=== PATIENT | female | born 1955 | race Caucasian/White ===

== ENCOUNTER 2017-08-28 17:03 | Emergency (ER) | payer OTHER, BC ==
[~2017-08-28] VITALS: Ht 157.5 cm; Wt 74.7 kg
[~2017-08-28 17:03] MED LIST: ALDACTONE100 MG PO; ALDACTONE50 MG PO; ALER-CAP25 M1 PO; ALIGN4 MG PO; AMOXICILLIN500 MG PO; ARTIFICIAL TEAR15 M1 BOTH EYES; ARTIFICIAL TEAR1510 BOTH EYES; ASPIR-LOW81 MG PO; ATIVAN1 MG PO; Aldactone PO; Antivert PO; BABY ASPIRIN81 M1 PO; BENTYL20 MG PO; CALCIUM CITR PO; CALCIUM CITRAT1 EAC9 PO; CALCIUM500 M3 NG; CALTRATE 600 +1 EAC1 PO; CARAFATE1 GM PO; CHLORDIAZEPOXI1 EACH PO; COLACE CLEAR50 MG PO; COLACE100 MG PO; COLACE50 MG PO; COMPAZINE10 MG PO; Carafate PO; DESYREL100 MG PO; DEXILANT60 MG PO; DICYCLOMINE HCL20 MG PO; DULCOLAX5 MG PO; Desyrel PO; Dexilant,Kapidex PO; ENDOCET 5-3251 EACH PO; FAMCICLOVIR500 MG PO; FAMVIR250 MG PO; FIBER TABS625 MG PO; FIBER THERAPY500 MG PO; FIBERTAB625 MG PO; FLONASE16 G1 BOTH NARES; FLUOXETINE HCL40 MG PO; Famvir PO; KEFLEX500 MG PO; KLONOPIN0.5 M1 PO; LEVOTHYROXINE137 MCG PO; LIBRAX, CLI1 CAPSULE PO; LINZESS290 MCG PO; LO-DOSE ASPIRIN81 M1 PO; LOW DOSE ASPIRI81 M1 PO; LOW DOSE ASPIRI81 M2 PO; Lexapro PO; MAG-OX400 M1 PO; MAG-OXIDE400 MG PO; MAGNESIUM400 M1 PO; MIRALAX17 GM PO; MIRALAX255 GM PO; MOBIC15 MG PO; MULTI-DAY VITA1 EACH PO; Mag-Ox PO; NASAL SPRAY30 M4 BOTH NARES; OCUFLOX 0.100 DROP/5 BOTH EYES; OFLOXACIN10 M1 LEFT EYE; ONDANSETRON ODT4 MG PO; ONE DAILY WOME1 EACH PO; PERCOCET 5/31 TABLET; PERCOCET 5/31 TABLET PO; PERI-COLACE TA1 EACH PO; PHENERGAN25 MG PR; PROZAC10 MG PO; PROZAC20 MG PO; PROZAC40 MG PO; Protonix IV; RALOXIFENE HCL60 MG PO; RX BALANCE INT1 EACH PO; SPIRONOLACTONE100 MG PO; SPIRONOLACTONE50 MG PO; STOOL SOFT-STI1 EACH PO; SUCRALFATE1 GM PO; SYNTHROID125 MCG PO; SYNTHROID137 MCG PO; TERAZOL 380 MG VG; TORADOL10 MG PO; TRAMADOL HCL50 MG PO; TYLENOL EXTRA500 MG PO; Theragran PO; Tums,OsCal PO; Tylenol Regular Stre PO; ULTRACET1 TABLET PO; ULTRAM50 MG PO; VALIUM5 MG PO; VIT D PO; WOMEN'S DAILY1 EAC1 PO; WOMEN'S DAILY1 EAC2 PO; XANAX0.5 MG PO; ZITHROMAX Z-PA250 MG PO; ZOFRAN4 MG PO
[2017-08-28 17:55] LABS: HEMATOCRIT 35.8 % (36.0-46.0); HEMOGLOBIN 12.4 G/DL (11.9-15.5); MCH 25.9 PG (29.0-34.0); MCHC 34.6 G/DL (30.0-36.0); MCV 74.7 FL (83-99); PLATELET COUNT 365 K/uL (156-360); RBC DIS.WIDTH-CV 15.4 % (11.8-14.6); RBC DIS.WIDTH-SD 41.5 % (39-53); RED BLOOD COUNT 4.79 M/uL (3.80-5.20); WHITE BLOOD COUNT 11.9 K/uL (4.1-10.2)
[2017-08-28 17:58] LABS: CHLORIDE 108 mEq/L (99-109); SODIUM 135 mEq/L (136-147)
[2017-08-28 17:59] LABS: GLUCOSE 123 mg/dL (70-99)
[2017-08-28 18:03] LABS: CREATININE 0.7 mg/dL (0.6-1.3); GFR ESTIMATE (CALCULATED) > 59 mL/min/
[2017-08-28 18:04] LABS: UREA NITROGEN (BUN) 30 mg/dL (9-23)
[2017-08-28 18:09] LABS: TROP-I INTERPRETATION NEGATIVE; TROPONIN-I < 0.01 ng/mL (0.0-0.30)
[2017-08-28] MEDS ORDERED: ZITHROMAX250 MG PO (18:45)
[2017-08-28] MEDS ORDERED: TESSALON PERLE100 MG PO (18:45)
[2017-08-28] MEDS ORDERED: ULTRAM50 MG PO (20:42)
[2017-08-28 21:25] VITALS: BP 125/75
== END 2017-08-28 21:30 | disposition home or self-care (01) ==
LOC: EME 17:03
PROVIDERS: Emergency Medicine
DX: J40 Bronchitis, not specified as acute or chronic (principal); R51 Headache; I10 Essential (primary) hypertension; F41.9 Anxiety disorder, unspecified; Z85.3 Personal history of malignant neoplasm of breast; Z85.850 Personal history of malignant neoplasm of thyroid; Z85.038 Personal history of other malignant neoplasm of large intestine; Z90.49 Acquired absence of other specified parts of digestive tract; Z98.84 Bariatric surgery status
CPT/HCPCS: 71046; 80048; 84484; 85027; 85379; 93005; 94640; 99281; 99285; J1885; J7030